=== PATIENT | female | born 1980 | race Hispanic/Latino ===

== ENCOUNTER 2017-04-06 10:04 | Inpatient (IN) | payer OTHER ==
[2017-04-06 10:34] VITALS: BMI 23.8
--- NOTE | 2017-04-06 10:44 | ED PDOC ---
HPI: Chest Pain Time Seen by Provider: 04/06/17 10:22 Chief Complaint (Provider): Chest pain with shortness of breath History Per: Patient History/Exam Limitations: no limitations Onset/Duration Of Symptoms: Days (x2) Current Symptoms Are (Timing): Still Present Additional Complaint(s): Nati Hugo is a 36 year old female with a past medical history of hypothyroidism presenting to the ED, referred from her PMD for chest pain and shortness of breath occurring for 2 days prior to arrival. The patient reports she recently traveled via airplane from [facility], with prolonged sitting. She also complains of right calf pain, but reports an injury to her right lower extremity occurring 1 week ago in [facility]. She denies cough or fever. Of note, the patient is on Clomid attempting to get . PMD: TBD Past Medical History Reviewed: Historical Data, Nursing Documentation, Vital Signs - Medical History PMH: Hypothyroidism - Family History Family History: States: Unknown Family Hx - Allergies Allergies/Adverse Reactions: Allergies Allergy/AdvReac Type Severity Reaction Status Date / Time No Known Allergies Allergy Verified 04/06/17 10:33 Review of Systems ROS Statement: Except As Marked, All Systems Reviewed And Found Negative Constitutional: Negative for: Fever Cardiovascular: Positive for: Chest Pain Respiratory: Positive for: Shortness of Breath. Negative for: Cough Musculoskeletal: Positive for: Leg Pain (right calf pain ) Physical Exam - Reviewed Nursing Documentation Reviewed: Yes Vital Signs Reviewed: Yes - Physical Exam Appears: Positive for: Non-toxic, No Acute Distress Head Exam: Positive for: ATRAUMATIC, NORMOCEPHALIC Cardiovascular/Chest: Positive for: Regular Rate, Rhythm. Negative for: Murmur Respiratory: Positive for: Normal Breath Sounds (clear to auscultation bilaterally). Negative for: Respiratory Distress Gastrointestinal/Abdominal: Positive for: Normal Exam, Soft. Negative for: Tenderness Extremity: Positive for: Tenderness (right calf tenderness with pretibial ecchymosis ). Negative for: Deformity Neurologic/Psych: Positive for: Alert, Oriented. Negative for: Motor/Sensory Deficits - Laboratory Results Result Diagrams: 04/06/17 11:16 04/06/17 11:16 Medical Decision Making Medical Decision Making: Time: 10:22 Impression: Chest pain with shortness of breath Plan: * ED ekg * CMP * Troponin I * CBC (with differential) * D Dimer [COAG] * Prothrombin Time [COAG] * [RAD] Chest Two Views (PA/LAT) * US Duplex Lower Extrm Vein Bilat * Reevaluation Scribe Attestation: Documented by Glory Alvarenga, acting as a scribe for Servando Michaud MD. Provider Scribe Attestation: All medical record entries made by the Scribe were at my direction and personally dictated by me. I have reviewed the chart and agree that the record accurately reflects my personal performance of the history, physical exam, medical decision making, and the department course for this patient. I have also personally directed, reviewed, and agree with the discharge instructions and disposition. Disposition - Clinical Impression Clinical Impression: Pulmonary embolism - Patient ED Disposition Is Patient to be Admitted: Yes - Disposition Disposition Time: 15:03 Condition: FAIR - Pt Status Changed To: Hospital Disposition Of: Inpatient - Admit Certification Admit to Inpatient:: After my assessment, the patient will require hospitalization for at least two midnights. This is because of the severity of symptoms shown, intensity of services needed, and/or the medical risk in this patient being treated as an outpatient. - POA Present On Arrival: Deep Vein Thrombosis / PE
--- NOTE | 2017-04-06 11:14 | RAD ---
HISTORY: chest pain COMPARISON: No prior. TECHNIQUE: Chest PA and lateral FINDINGS: LUNGS: No infiltrate is identified bilaterally however there is a small ovoid density identified overlapping the posterior left 6th rib suspicious for a pulmonary lesion. This could be artifactual. Follow-up chest CT without contrast is advised for better characterization. Remaining lung frye are otherwise clear bilaterally without acute no bulge infiltrate or large mass identified. PLEURA: No significant pleural effusion identified. No pneumothorax apparent. CARDIOVASCULAR: Normal. OSSEOUS STRUCTURES: No significant abnormalities. VISUALIZED UPPER ABDOMEN: Normal. OTHER FINDINGS: None. IMPRESSION: Questionable left upper lobe lateral nodule versus artifact. Follow-up chest is advised for greater characterization here. Examination otherwise appears negative. No acute infiltrate or pleural effusion bilaterally.
[2017-04-06 11:20] LABS: BASO # 0.1 K/uL (0.0-0.2); BASO % 0.7 % (0.0-2.0); EOS # 0.2 K/uL (0.0-0.7); EOS % 2.2 % (0.0-4.0); HEMATOCRIT 36.8 % (34.0-47.0); LYMPH # 2.2 K/uL (1.0-4.3); LYMPH % 28.4 % (20.0-40.0); MEAN CELL VOLUME 96.1 fl (81.0-99.0); MEAN CORPUSCULAR HEMOGLOBIN 32.1 pg (27.0-31.0); MEAN CORPUSCULAR HGB CONC 33.4 g/dL (33.0-37.0); MEAN PLATELET VOLUME 7.4 fl (7.2-11.7); MONO # 0.5 K/uL (0.0-0.8); NEUT # 4.9 K/uL (1.8-7.0); NEUT % 62.7 % (50.0-75.0); NRBC % 0.1 % (0.0-0.0); RED CELL DISTRIBUTION WIDTH 13.3 % (11.5-14.5); WHITE BLOOD COUNT 7.8 K/uL (4.8-10.8)
[2017-04-06 11:30] LABS: ALB/GLOB RATIO 1.2 (1.0-2.1); ALKALINE PHOSPHATASE 65 U/L (38-126); ALT/SGPT 55 U/L (9-52); AST/SGOT 60 U/L (14-36); BILIRUBIN,TOTAL 0.4 mg/dl (0.2-1.3); BLOOD UREA NITROGEN 6 mg/dl (7-17); CALCIUM 9.1 mg/dL (8.4-10.2); CARBON DIOXIDE 23 mmol/L (22-30); CHLORIDE 107 mmol/L (98-107); GFR AFRICAN-AMERICAN > 60; GLUCOSE,RANDOM 100 mg/dL (65-105); POTASSIUM 4.4 MMOL/L (3.6-5.0); SODIUM 144 mmol/l (132-148); TOTAL PROTEIN 7.7 G/DL (6.3-8.2)
--- NOTE | 2017-04-06 12:55 | US ---
Bilateral lower extremity ultrasound. Indication: Calf pain Technique: Duplex ultrasound evaluation of the lower extremity Comparison: None available Findings: There is normal flow, compressibility, and augmentation of the hilar common femoral, femoral, and popliteal veins. The bilateral posterior tibial veins appear patent. Evidence of thrombus involving the right soleus vein, in region of patient discomfort. Impression: No evidence of deep venous thrombosis in bilateral lower extremities. Evidence of right soleus vein thrombus, in region of patient discomfort.
[2017-04-06] MEDS ORDERED: Sodium Chloride 0.9% 50 ML IV ONE (13:49)
[2017-04-06] MEDS ORDERED: Iodixanol 320 MG/ML 100 ML BOTTLE IV ONE (13:49)
[2017-04-06] MEDS ORDERED: Enoxaparin 60 mg Syringe SC STA (14:33)
--- NOTE | 2017-04-06 14:52 | CT ---
PROCEDURE: CT Chest with contrast (Pulmonary Angiogram) HISTORY: elevated d dimer SOB and chest pain COMPARISON: No prior CT available. TECHNIQUE: Axial computed tomography images were obtained of the chest in the pulmonary arterial phase of enhancement. Coronal and sagittal reformatted images were created and reviewed. Intravenous contrast dose: Visipaque 320, 80 cc. Radiation dose: Total exam DLP = 308 mGy-cm. This CT exam was performed using one or more of the following dose reduction techniques: Automated exposure control, adjustment of the mA and/or kV according to patient size, and/or use of iterative reconstruction technique. FINDINGS: PULMONARY ARTERIES: Multifocal filling defect identified at the distal main pulmonary arteries bilaterally but also multiple secondary tertiary inquire narrowing pulmonary branches and essentially each lobe bilaterally. Finding compatible multifocal pulmonary emboli. No saddle embolus is appreciated with the main pulmonary artery widely patent. Main pulmonary caliber is normal at 2.6 cm. AORTA: No acute findings. No thoracic aortic aneurysm. LUNGS: Unremarkable. No nodule, mass or pulmonary consolidation. PLEURAL SPACES: Unremarkable. No effusion or pneuomothorax. Note is made of a small rounded mass within the right major fissure base laterally, approaching the lateral right costophrenic sulcus and measure 1.5 x 1.5 cm and -125 Hounsfield units compatible with a lipoma. HEART: Unremarkable. No cardiomegaly. No significant pericardial effusion. LYMPH NODES: No lymphadenopathy. BONES, CHEST WALL: Unremarkable. No fracture or destructive lesion OTHER FINDINGS: Unremarkable. IMPRESSION: Multifocal primarily peripheral pulmonary emboli affect each lobe as discussed above bilaterally. No saddle embolus is appreciate however distal main pulmonary emboli are seen bilaterally as well. No infiltrate pneumothorax or significant lymphadenopathy. Incidental small lipoma 1.5 cm at the right major fissure base laterally. Findings discussed Dr. Michaud with written down and read back verification, 04/06/2017, 2:25 p.m..
[2017-04-06] MEDS ORDERED: Sodium Chloride 0.9% 1,000 ML IV STA (15:25)
[2017-04-06] MEDS ORDERED: Influenza Vaccine 18yr & older 0.5 ML/45 MCG SYR IM ONE (19:00)
[2017-04-06] MEDS ORDERED: Pneumococcal 23-Valent Vaccine IM ONE (19:00)
[2017-04-06] MEDS: Enoxaparin 60 mg Syringe SC SCH (22:14)
[2017-04-07] MEDS: Levothyroxine 50 MCG TAB PO SCH (06:45)
[2017-04-07] MEDS: Enoxaparin 60 mg Syringe SC SCH ×2 (08:32→21:43)
[2017-04-07] MEDS ORDERED: Enoxaparin 80 mg Syringe SC SCH (09:00)
--- NOTE | 2017-04-07 11:24 | CP.PCM.CON ---
History of Present Illness - History of Present Illness History of Present Illness: This is a 36 yrs old gfemale who was admitted with a pulmonary embolism. Pt had just arrived from [place] on a flight lasting 7 hrs long. She was also on Clomid as well. She has never had any h/o hypercoagulability before. No family h/o of thrombotic problems. Her ct scan showed multiple emboli, She had chest pain which has almost resolved now with the Lovenox that she was started on yesterday. She has no shortness of breath at this time. No other significant medical problems. No h/o smoking. Past Patient History - Past Social History Smoking Status: Current Some Days Smoker - CARDIAC Hx Cardiac Disorders: No - ENDOCRINE/METABOLIC Hx Hypothyroidism: Yes - MUSCULOSKELETAL/RHEUMATOLOGICAL Hx Falls: Yes - PSYCHIATRIC Hx Substance Use: No - ANESTHESIA Hx Anesthesia: No Meds Allergies/Adverse Reactions: Allergies Allergy/AdvReac Type Severity Reaction Status Date / Time No Known Allergies Allergy Verified 04/06/17 10:33 - Medications Medications: Current Medications Acetaminophen (Tylenol 325mg Tab) 650 mg PO Q6 PRN PRN Reason: Headache Enoxaparin Sodium (Lovenox) 60 mg SC Q12 [facility] PRN Reason: Protocol Last Admin: 04/07/17 08:32 Dose: 60 mg Levothyroxine Sodium (Synthroid) 50 mcg PO DAILY@0630 [facility] Last Admin: 04/07/17 06:45 Dose: 50 mcg Physical Exam - Additional Findings Additional findings: Physical exam; Alert, well oriented in no acute distress neck supple, no adenopathy Neck; supple, no adenopathy Chest; clear, no rales or rgonchi heart;RSR, no murmur Abd;Soft, no mass no h/s megaly Results - Vital Signs Recent Vital Signs: Last Vital Signs Temp 98.3 F 04/07/17 08:32 Pulse 53 L 04/07/17 08:32 Resp 20 04/07/17 08:32 BP 125/81 04/07/17 08:32 Pulse Ox 100 04/07/17 08:32 - Labs Result Diagrams: 04/06/17 11:16 04/06/17 11:16 Labs: Laboratory Results - last 24 hr 04/06/17 04/06/17 04/06/17 11:16 11:16 11:16 WBC 7.8 RBC 3.83 Hgb 12.3 Hct 36.8 MCV 96.1 MCH 32.1 H MCHC 33.4 RDW 13.3 Plt Count 247 MPV 7.4 Neut % (Auto) 62.7 Lymph % (Auto) 28.4 [place] % (Auto) 6.0 Eos % (Auto) 2.2 Baso % (Auto) 0.7 Neut # 4.9 Lymph # 2.2 [place] # 0.5 Eos # 0.2 Baso # 0.1 PT 10.9 INR 1.0 D-Dimer, Quantitative 704 H Sodium 144 Potassium 4.4 Chloride 107 Carbon Dioxide 23 Anion Gap 18 BUN 6 L Creatinine 0.7 Est GFR ( Amer) > 60 Est GFR (Non-Af Amer) > 60 Random Glucose 100 Calcium 9.1 Total Bilirubin 0.4 AST 60 H ALT 55 H Alkaline Phosphatase 65 Troponin I < 0.0120 NT-Pro-B Natriuret Pep 68.8 Total Protein 7.7 Albumin 4.2 Globulin 3.4 Albumin/Globulin Ratio 1.2 Assessment & Plan - Assessment and Plan (Free Text) Assessment: Impression; Pulmonary embolism The clomid and the long trip from [place] may have been contributing factors. R/O primary hypercoagullable state. Plan: Plan; will continue the lovenox until the chest pain and shortness of breath is better. She can be discharged with xarelto when ready - Date & Time Date: 04/07/17 Time: 11:56
--- NOTE | 2017-04-07 11:36 | CARD ---
APPROVED REPORT EXAM: Two-dimensional and M-mode echocardiogram with Doppler and color Doppler. Other Information Quality : GoodRhythm : NSR INDICATION Pulmonary Embolism 2D DIMENSIONS IVSd0.90 (0.7-1.1cm)LVDd4.77 (3.9-5.9cm) LVOT Diameter1.88 (1.8-2.4cm)PWd0.91 (0.7-1.1cm) IVSs0.92 (0.8-1.2cm)LVDs3.85 (2.5-4.0cm) FS (%) 19.2 %PWs0.99 (0.8-1.2cm) M-Mode DIMENSIONS Left Atrium (MM)3.72 (2.5-4.0cm)IVSd0.80 (0.7-1.1cm) Aortic Root2.54 (2.2-3.7cm)LVDd5.71 (4.0-5.6cm) Aortic Cusp Exc.2.01 (1.5-2.0cm)PWd0.72 (0.7-1.1cm) IVSs1.38 cmFS (%) 48 % LVDs2.95 (2.0-3.8cm)PWs1.32 cm Mitral Valve MV E Nneucqqd37.1cm/sMV DECEL [id number] A Ippjjwoz51.2cm/s MV YXE72acQ/A ratio1.6MVA (PHT)3.74cm2 TDI Lateral E' Peak V20.94cm/sMedial E' Peak V10.02cm/sE/Lateral E'3.4 E/Medial E'7.1 Pulmonary Valve PV Peak Wuzxnmau05.4cm/s LEFT VENTRICLE The left ventricle is normal size. There is normal left ventricular wall thickness. The left ventricular function is normal. The left ventricular ejection fraction is 60% There is normal LV segmental wall motion. The left ventricular diastolic function is normal. No left ventricle thrombus noted on this study. There is no ventricular septal defect visualized. There is no left ventricular aneurysm. There is no mass noted in the left ventricle. RIGHT VENTRICLE The right ventricle is normal size. There is normal right ventricular wall thickness. The right ventricular systolic function is normal. ATRIA The left atrium size is normal. The right atrium size is normal. The interatrial septum is intact with no evidence for an atrial septal defect. AORTIC VALVE The aortic valve is normal in structure and function. No aortic regurgitation is present. There is no aortic valvular stenosis. There is no aortic valvular vegetation. MITRAL VALVE The mitral valve is normal in structure and function. There is no evidence of mitral valve prolapse. There is no mitral valve stenosis. There is no mitral valve regurgitation noted. TRICUSPID VALVE The tricuspid valve is normal in structure and function. There is no tricuspid valve regurgitation noted. There is no tricuspid valve prolapse or vegetation. There is no tricuspid valve stenosis. PULMONIC VALVE The pulmonary valve is normal in structure and function. There is no pulmonic valvular regurgitation. There is no pulmonic valvular stenosis. GREAT VESSELS The aortic root is normal in size. The ascending aorta is normal in size. The IVC is normal in size and collapses >50% with inspiration. PERICARDIAL EFFUSION The pericardium appears normal. There is no pleural effusion. <Conclusion> Normal Echocardiogram
--- NOTE | 2017-04-07 11:43 | CP.PCM.HP ---
<Thierno Mendez - Last Filed: 04/07/17 12:17> History of Present Illness - History of Present Illness History of Present Illness: 36 YO F w/ PMH of hypothyroidsism was admitted to the ED after she started feeling SOB after 2 days of flying from [place] for work. Patient has been on clomiphene citrate and progesterone pills, for the last couple of months and does occasionally smoke. She had had an injury to her right lower calf couple of days before the incident of SOB and her right lower calf was swollen. Denies any known family history of bleeding disorders. When patient was in college, she states she had an eppisode of b/l lower extremity swelling with sob , but was not worked up for PE and did not have a chest CT done. 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[place], Occasional smoker Present on Admission - Present on Admission Any Indicators Present on Admission: Yes History of DVT/PE: Yes Past Patient History - Past Social History Smoking Status: Current Some Days Smoker - CARDIAC Hx Cardiac Disorders: No - ENDOCRINE/METABOLIC Hx Hypothyroidism: Yes - MUSCULOSKELETAL/RHEUMATOLOGICAL Hx Falls: Yes - PSYCHIATRIC Hx Substance Use: No - ANESTHESIA Hx Anesthesia: No Meds Allergies/Adverse Reactions: Allergies Allergy/AdvReac Type Severity Reaction Status Date / Time No Known Allergies Allergy Verified 04/06/17 10:33 Physical Exam - Head Exam Head Exam: ATRAUMATIC, NORMAL INSPECTION, NORMOCEPHALIC - Respiratory Exam Respiratory Exam: Clear to Auscultation Bilateral, NORMAL BREATHING PATTERN. absent: Rhonchi, Wheezes - GI/Abdominal Exam GI & Abdominal Exam: Normal Bowel Sounds, Soft. absent: Tenderness - Extremities Exam Additional comments: Right lower extremity swelling and contussion - Pretibial extubati - Neurological Exam Neurological exam: Alert, CN II-XII Intact, Normal Gait, Oriented x3 - Skin Skin Exam: Dry, Normal Color, Warm Results - Vital Signs Recent Vital Signs: Last Vital Signs Temp 98.3 F 04/07/17 08:32 Pulse 53 L 04/07/17 08:32 Resp 20 04/07/17 08:32 BP 125/81 04/07/17 08:32 Pulse Ox 100 04/07/17 08:32 - Labs Result Diagrams: 04/06/17 11:16 04/06/17 11:16 Labs: Laboratory Results - last 24 hr 04/06/17 04/06/17 11:16 11:16 PT 10.9 INR 1.0 D-Dimer, Quantitative 704 H Sodium 144 Potassium 4.4 Chloride 107 Carbon Dioxide 23 Anion Gap 18 BUN 6 L Creatinine 0.7 Est GFR ( Amer) > 60 Est GFR (Non-Af Amer) > 60 Random Glucose 100 Calcium 9.1 Total Bilirubin 0.4 AST 60 H ALT 55 H Alkaline Phosphatase 65 Troponin I < 0.0120 NT-Pro-B Natriuret Pep 68.8 Total Protein 7.7 Albumin 4.2 Globulin 3.4 Albumin/Globulin Ratio 1.2 Assessment & Plan - Assessment and Plan (Free Text) Assessment: 1) Pulmonary Embolsm - D dimer: 704 - Multifocal primarily perpheral pulmonary emboli affect each lobe as discussed above bilaterally. No sadle embolus - Heme onc consult appreciated - Factor V, Lupus anticoag, MTHFR, phospholipids, prothrombin gene - Enoxaparin 60 mg SC Q12 <Eulalio Bae - Last Filed: 04/09/17 15:43> Results - Vital Signs Recent Vital Signs: Last Vital Signs Temp 98.8 F 04/09/17 13:22 Pulse 67 04/09/17 13:22 Resp 18 04/09/17 13:22 BP 107/66 04/09/17 13:22 Pulse Ox 98 04/09/17 13:22 - Labs Result Diagrams: 04/06/17 11:16 04/08/17 08:05 Labs: Laboratory Results - last 24 hr 04/08/17 04/08/17 08:05 08:26 Hep Bs Antigen Negative Hepatitis C Antibody Negative Assessment & Plan - Assessment and Plan (Free Text) Assessment: Patient was personally seen and examined by me in rounds with residents. Available labs and diagnostic data reviewed. Case, Patients's condition and management plan discussed with residents in rounds. Agree with residents's progress note. Plan: As ordered.
--- NOTE | 2017-04-07 12:47 | CARD ---
APPROVED REPORT EKG Measurement Heart [id number] <Conclusion> Normal sinus rhythm Normal ECG
[2017-04-08] MEDS: Levothyroxine 50 MCG TAB PO SCH (05:49)
--- NOTE | 2017-04-08 07:55 | CP.PCM.PN ---
<Thierno Mendez - Last Filed: 04/08/17 07:58> Subjective - Date & Time of Evaluation Date of Evaluation: 04/08/17 Time of Evaluation: 07:53 - Subjective Subjective: PAtient seen and examined at bedside with Dr. Bae Patient denies any overnight events. Slept well overnight. Patient did not use nasal canula overnight. States she is breathing, better but is still not back to her baseline. Denies any chest pain Objective - Vital Signs/Intake and Output Vital Signs (last 24 hours): Temp Pulse Resp BP Pulse Ox 98.3 F 45 L 18 124/73 100 04/08/17 05:12 04/08/17 05:12 04/08/17 05:12 04/08/17 05:12 04/08/17 05:12 - Medications Medications: Current Medications Acetaminophen (Tylenol 325mg Tab) 650 mg PO Q6 PRN PRN Reason: Headache Alprazolam (Xanax) 0.5 mg PO BID PRN PRN Reason: Anxiety Last Admin: 04/07/17 16:20 Dose: 0.5 mg Enoxaparin Sodium (Lovenox) 60 mg SC Q12 [facility] PRN Reason: Protocol Last Admin: 04/07/17 21:43 Dose: 60 mg Levothyroxine Sodium (Synthroid) 50 mcg PO DAILY@0630 [facility] Last Admin: 04/08/17 05:49 Dose: 50 mcg - Labs Labs: 04/06/17 11:16 04/06/17 11:16 PT 10.9 Seconds (9.8-13.1) 04/06/17 11:16 INR 1.0 (0.9-1.2) 04/06/17 11:16 - Constitutional Appears: No Acute Distress - Head Exam Head Exam: NORMAL INSPECTION - Eye Exam Eye Exam: Normal appearance - ENT Exam ENT Exam: Mucous Membranes Moist - Neck Exam Neck Exam: Normal Inspection - Respiratory Exam Respiratory Exam: Clear to Ausculation Bilateral, NORMAL BREATHING PATTERN - Cardiovascular Exam Cardiovascular Exam: REGULAR RHYTHM, +S1, +S2 - GI/Abdominal Exam GI & Abdominal Exam: Soft, Normal Bowel Sounds. absent: Tenderness - Extremities Exam Extremities Exam: Full ROM, Normal Capillary Refill - Neurological Exam Neurological Exam: Alert, Awake, CN II-XII Intact, Normal Gait, Oriented x3 - Skin Skin Exam: Normal Color, Warm Assessment and Plan - Assessment and Plan (Free Text) Assessment: 1) Pulmonary Embolsm - D dimer: 704 - Multifocal primarily perpheral pulmonary emboli affect each lobe as discussed above bilaterally. No sadle embolus - Heme onc consult appreciated - Factor V, Lupus anticoag, MTHFR, phospholipids, prothrombin gene - Enoxaparin 60 mg SC Q12 - Discharge patient on xaralto when stable <Bae,Eulalio K - Last Filed: 04/09/17 15:46> Objective - Vital Signs/Intake and Output Vital Signs (last 24 hours): Temp Pulse Resp BP Pulse Ox 98.8 F 67 18 107/66 98 04/09/17 13:22 04/09/17 13:22 04/09/17 13:22 04/09/17 13:22 04/09/17 13:22 - Medications Medications: Current Medications Acetaminophen (Tylenol 325mg Tab) 650 mg PO Q6 PRN PRN Reason: Headache Enoxaparin Sodium (Lovenox) 60 mg SC Q12 [facility] PRN Reason: Protocol Levothyroxine Sodium (Synthroid) 50 mcg PO DAILY@0630 [facility] Last Admin: 04/09/17 06:20 Dose: 50 mcg - Labs Labs: 04/06/17 11:16 04/08/17 08:05 PT 10.9 Seconds (9.8-13.1) 04/06/17 11:16 INR 1.0 (0.9-1.2) 04/06/17 11:16 Assessment and Plan - Assessment and Plan (Free Text) Assessment: Patient was personally seen and examined by me in rounds with residents. Available labs and diagnostic data reviewed. Case, Patients's condition and management plan discussed with residents in rounds. Agree with residents's progress note. Plan: As ordered.
[2017-04-08 08:42] LABS: ALB/GLOB RATIO 1.2 (1.0-2.1); ALKALINE PHOSPHATASE 55 U/L (38-126); ALT/SGPT 47 U/L (9-52); AST/SGOT 40 U/L (14-36); BILIRUBIN,TOTAL 0.5 mg/dl (0.2-1.3); BLOOD UREA NITROGEN 5 mg/dl (7-17); CALCIUM 8.9 mg/dL (8.4-10.2); CARBON DIOXIDE 26 mmol/L (22-30); CHLORIDE 107 mmol/L (98-107); GFR AFRICAN-AMERICAN > 60; GLUCOSE,RANDOM 102 mg/dL (65-105); POTASSIUM 4.5 MMOL/L (3.6-5.0); SODIUM 141 mmol/l (132-148); TOTAL PROTEIN 7.4 G/DL (6.3-8.2)
[2017-04-08] MEDS: Enoxaparin 60 mg Syringe SC SCH ×2 (09:44→21:45)
[2017-04-09] MEDS: Levothyroxine 50 MCG TAB PO SCH (06:20)
--- NOTE | 2017-04-09 09:32 | CP.PCM.PN ---
Subjective - Date & Time of Evaluation Date of Evaluation: 04/09/17 Time of Evaluation: 09:23 - Subjective Subjective: Pt is still a little short of breath even when she talks. She has been on lovenox and doing better than the last few days.. I feel its too early to starther on xarelto while she is still symptomatic. I think in 1-2 days she should be be better and ready to switch to Objective - Vital Signs/Intake and Output Vital Signs (last 24 hours): Temp Pulse Resp BP Pulse Ox 98.6 F 55 L 20 110/71 100 04/09/17 08:00 04/09/17 08:00 04/09/17 08:00 04/09/17 08:00 04/09/17 08:00 - Medications Medications: Current Medications Acetaminophen (Tylenol 325mg Tab) 650 mg PO Q6 PRN PRN Reason: Headache Alprazolam (Xanax) 0.5 mg PO BID PRN PRN Reason: Anxiety Last Admin: 04/08/17 21:49 Dose: 0.5 mg Enoxaparin Sodium (Lovenox) 60 mg SC Q12 [facility] PRN Reason: Protocol Last Admin: 04/08/17 21:45 Dose: 60 mg Levothyroxine Sodium (Synthroid) 50 mcg PO DAILY@0630 [facility] Last Admin: 04/09/17 06:20 Dose: 50 mcg - Labs Labs: 04/06/17 11:16 04/08/17 08:05 PT 10.9 Seconds (9.8-13.1) 04/06/17 11:16 INR 1.0 (0.9-1.2) 04/06/17 11:16
[2017-04-09] MEDS: Enoxaparin 60 mg Syringe SC SCH ×2 (10:00→20:45)
--- NOTE | 2017-04-09 12:40 | PN ---
DATE: 04/09/2017 SUBJECTIVE: Patient seen and examined. Interim events noted. Consults noted and appreciated. Hematology/Oncology followup and intervention noted and appreciated. The case discussed with telephone sex worker at length. Patient feels okay. Denies any chest pain. No shortness of breath. PHYSICAL EXAMINATION: GENERAL: Patient is in no acute distress. VITAL SIGNS: Stable. HEART: S1 and S2, normal and regular. LUNGS: Good bilateral air exchange. ABDOMEN: Soft, nontender. EXTREMITIES: No edema. No calf swelling. No tenderness. No acute ischemia. CENTRAL NERVOUS SYSTEM: Essentially unchanged. DIAGNOSTIC DATA: Available diagnostic data reviewed. ASSESSMENT AND PLAN: Overall, patient's general medical condition is stable. Telemetry monitoring does not reveal significant arrhythmias. Case and plan discussed with patient at length. Need for anticoagulation for alf explained. Precautions about bleeding also explained. Patient was also counseled about smoking and control pills. Plan as ordered. Eulalio Bae MD
[2017-04-10] MEDS: Levothyroxine 50 MCG TAB PO SCH (05:37)
--- NOTE | 2017-04-10 09:06 | CP.PCM.PCO ---
Assessment & Plan - Assessment and Plan (Free Text) Assessment: pt. feels well today, less sob. Denies cp, fever, chills As per patient may fly back to [place] on Sunday 04/15 Rx for xarelto 15 mg po sent to [facility] pt. cleared for discharge after afternoon dose of Lovenox today instructed to return to ED for worsening sob, cp, any sx bleeding- pt. conveys understanding
[2017-04-10] MEDS: Enoxaparin 60 mg Syringe SC SCH (09:28)
--- NOTE | 2017-04-10 09:52 | CP.PCM.PN ---
Subjective - Date & Time of Evaluation Date of Evaluation: 04/10/17 Time of Evaluation: 09:46 - Subjective Subjective: Pt is feeling very much better. She still has a very small amount of shortness of breath. She is going to be discharged on xarelto which she should be continued for at least 1 year. Information has been given to her re the side effects of the medicine and to call in case of emergency bleeding. She should also call if the shortness of breath gets worse. Objective - Vital Signs/Intake and Output Vital Signs (last 24 hours): Temp Pulse Resp BP Pulse Ox 97.7 F 54 L 18 108/71 99 04/10/17 08:00 04/10/17 08:00 04/10/17 08:00 04/10/17 08:00 04/10/17 08:00 - Medications Medications: Current Medications Acetaminophen (Tylenol 325mg Tab) 650 mg PO Q6 PRN PRN Reason: Headache Alprazolam (Xanax) 0.5 mg PO BID PRN PRN Reason: Anxiety Last Admin: 04/10/17 09:28 Dose: 0.5 mg Enoxaparin Sodium (Lovenox) 60 mg SC Q12 BRANDON PRN Reason: Protocol Last Admin: 04/10/17 09:28 Dose: 60 mg Levothyroxine Sodium (Synthroid) 50 mcg PO DAILY@0630 [facility] Last Admin: 04/10/17 05:37 Dose: 50 mcg - Labs Labs: 04/06/17 11:16 04/08/17 08:05 PT 10.9 Seconds (9.8-13.1) 04/06/17 11:16 INR 1.0 (0.9-1.2) 04/06/17 11:16
--- NOTE | 2017-04-10 12:46 | CP.PCM.DIS ---
Provider - Provider Date of Admission: 04/06/17 15:01 Attending physician: Eulalio Bae MD Time Spent in preparation of Discharge (in minutes): 30 Diagnosis - Discharge Diagnosis (1) Pulmonary embolism Status: Acute Hospital Course - Lab Results Lab Results: Most Recent Lab Values WBC 7.8 K/uL (4.8-10.8) 04/06/17 11:16 RBC 3.83 Mil/uL (3.80-5.20) 04/06/17 11:16 Hgb 12.3 g/dL (12.0-16.0) 04/06/17 11:16 Hct 36.8 % (34.0-47.0) 04/06/17 11:16 MCV 96.1 fl (81.0-99.0) 04/06/17 11:16 MCH 32.1 pg (27.0-31.0) H 04/06/17 11:16 MCHC 33.4 g/dL (33.0-37.0) 04/06/17 11:16 RDW 13.3 % (11.5-14.5) 04/06/17 11:16 Plt Count 247 K/uL (130-400) 04/06/17 11:16 MPV 7.4 fl (7.2-11.7) 04/06/17 11:16 Neut % (Auto) 62.7 % (50.0-75.0) 04/06/17 11:16 Lymph % (Auto) 28.4 % (20.0-40.0) 04/06/17 11:16 [place] % (Auto) 6.0 % (0.0-10.0) 04/06/17 11:16 Eos % (Auto) 2.2 % (0.0-4.0) 04/06/17 11:16 Baso % (Auto) 0.7 % (0.0-2.0) 04/06/17 11:16 Neut # 4.9 K/uL (1.8-7.0) 04/06/17 11:16 Lymph # 2.2 K/uL (1.0-4.3) 04/06/17 11:16 [place] # 0.5 K/uL (0.0-0.8) 04/06/17 11:16 Eos # 0.2 K/uL (0.0-0.7) 04/06/17 11:16 Baso # 0.1 K/uL (0.0-0.2) 04/06/17 11:16 PT 10.9 Seconds (9.8-13.1) 04/06/17 11:16 INR 1.0 (0.9-1.2) 04/06/17 11:16 D-Dimer, Quantitative 704 ng/mlDDU (0-230) H 04/06/17 11:16 Lupus Anticoagulant see note 04/07/17 11:10 LA PTT Screen 35 sec (<=40) 04/07/17 11:10 dRVVT Mixing Study 28 sec (<=45) 04/07/17 11:10 dRVVT Mix Interpret Not indicated 04/07/17 11:10 Sodium 141 mmol/l (132-148) 04/08/17 08:05 Potassium 4.5 MMOL/L (3.6-5.0) 04/08/17 08:05 Chloride 107 mmol/L (98-107) 04/08/17 08:05 Carbon Dioxide 26 mmol/L (22-30) 04/08/17 08:05 Anion Gap 13 (10-20) 04/08/17 08:05 BUN 5 mg/dl (7-17) L 04/08/17 08:05 Creatinine 0.6 mg/dL (0.7-1.2) L 04/08/17 08:05 Est GFR ( Amer) > 60 04/08/17 08:05 Est GFR (Non-Af Amer) > 60 04/08/17 08:05 Random Glucose 102 mg/dL (65-105) 04/08/17 08:05 Calcium 8.9 mg/dL (8.4-10.2) 04/08/17 08:05 Total Bilirubin 0.5 mg/dl (0.2-1.3) 04/08/17 08:05 AST 40 U/L (14-36) H D 04/08/17 08:05 ALT 47 U/L (9-52) 04/08/17 08:05 Alkaline Phosphatase 55 U/L (38-126) 04/08/17 08:05 Troponin I < 0.0120 ng/mL (0.00-0.120) 04/06/17 11:16 NT-Pro-B Natriuret Pep 68.8 pg/ml (0-450) 04/06/17 11:16 Total Protein 7.4 G/DL (6.3-8.2) 04/08/17 08:05 Albumin 4.0 g/dL (3.5-5.0) 04/08/17 08:05 Globulin 3.4 gm/dL (2.2-3.9) 04/08/17 08:05 Albumin/Globulin Ratio 1.2 (1.0-2.1) 04/08/17 08:05 Phospholipids 247 mg/dL (151-264) 04/07/17 11:10 Hep Bs Antigen Negative (NEGATIVE) 04/08/17 08:05 Hepatitis C Antibody Negative (NEGATIVE) 04/08/17 08:26 - Hospital Course Hospital Course: 36 YO F w/ PMH of hypothyroidsism was admitted to the ED after she started feeling SOB after 2 days of flying from [place] for work. On chest CT she was noted to have a PE. Patient was put on therapeutic dosage of lovenox. Heme onc was consulted, and patient has been worked up throughly. As per patient may fly back to [place] on Sunday 04/15 Rx for xarelto 15 mg po sent to [facility] pt. cleared for discharge after afternoon dose of Lovenox today instructed to return to ED for worsening sob, cp, any sx bleeding- pt. conveys understanding Discharge Exam - Head Exam Head Exam: NORMAL INSPECTION - Eye Exam Eye Exam: Normal appearance - Respiratory Exam Respiratory Exam: Clear to PA & Lateral. absent: Wheezes, Respiratory Distress - Cardiovascular Exam Cardiovascular Exam: REGULAR RHYTHM, +S1, +S2 - GI/Abdominal Exam GI & Abdominal Exam: Normal Bowel Sounds, Soft. absent: Tenderness - Extremities Exam Extremities exam: normal inspection - Neurological Exam Neurological exam: Alert, CN II-XII Intact, Normal Gait, Oriented x3 - Skin Skin Exam: Normal Color, Warm Discharge Plan - Discharge Medications Prescriptions: ALPRAZolam [Xanax] 0.25 mg PO BID PRN #10 tab PRN Reason: Anxiety Rivaroxaban [Xarelto] 15 mg PO BID #60 tab - Follow Up Plan Condition: GOOD Disposition: HOME/ ROUTINE Additional Instructions: As per patient may fly back to [place] on Sunday 04/15 [facility]. cleared for discharge after afternoon dose of Lovenox today instructed to return to ED for worsening sob, cp, any sx bleeding- pt. conveys understanding
--- NOTE | 2017-04-10 13:42 | PN ---
DATE: 04/10/2017 SUBJECTIVE: Patient seen and examined. Interim events noted. Consults noted and appreciated. Hematology followup and intervention noted and appreciated. Case discussed with shotblast operator. Patient feels much better. Shortness of breath resolved. Patient was able to ambulate around the unit for a couple of laps without any problem. No chest pain. No shortness of breath. PHYSICAL EXAMINATION: GENERAL: Patient is in no acute distress. VITAL SIGNS: Stable. HEART: S1 and S2, normal and regular. LUNGS: Good bilateral air exchange. ABDOMEN: Soft and nontender. EXTREMITIES: No edema. No calf swelling. No tenderness. No acute ischemia. CENTRAL NERVOUS SYSTEM: Essentially unchanged. DIAGNOSTIC DATA: Available diagnostic data reviewed. Telemetry monitoring does not reveal significant arrhythmias. ASSESSMENT AND PLAN: Overall, patient's general medical condition significantly improved. Plan as ordered. Patient is for possible discharge today. Case and plan discussed with patient. Eulalio Bae MD
[2017-04-10 15:45] VITALS: BP 104/69; PULSE 62; RESP 20; TEMP 98.3; O2SAT 99
[2017-04-10] MEDS ORDERED: Enoxaparin 60 mg Syringe SC STA (16:58)
== END 2017-04-10 17:00 | disposition home or self-care (01) | DRG 176 ==
LOC: H.ER 10:04 → H.ERHOLD 15:01 → H.TEL 16:42
PROVIDERS: ADMIT Internal Medicine; ATTEND Internal Medicine
PROC: 3E0234Z Introduction of Serum, Toxoid and Vaccine into Muscle, Percutaneous Approach (ICD-10-PCS; principal; 2017-04-07)
DX: I26.99 Other pulmonary embolism without acute cor pulmonale (principal); E03.9 Hypothyroidism, unspecified; F17.200 Nicotine dependence, unspecified, uncomplicated; Z23 Encounter for immunization